=== PATIENT | female | born 1985 | race Caucasian/White ===

== ENCOUNTER → 2017-08-06 18:55 | Outpatient (CLI) | payer OTHER, SELFPAY ==
[2017-08-06 23:15] LABS: Chlamydia Trachomatis by PCR Negative (Negative); Neisserai gonorrhoeae by PCR Negative (Negative); Probe Check PASS; Sample Adequacy Control PASS; Specimen Processing Control PASS
[2017-08-14 13:31] LABS: HPV Reflexed? NOT INDICATED
== END | disposition home or self-care (01) ==
PROVIDERS: Family Provider Family Medicine; PCP Family Medicine; Visit Provider Obstetrics & Gynecology
DX: Z34.81 Encounter for supervision of other normal pregnancy, first trimester (principal); Z12.4 Encounter for screening for malignant neoplasm of cervix; Z11.3 Encounter for screening for infections with a predominantly sexual mode of transmission
CPT/HCPCS: 87491; 87591; 88175; G0145

== ENCOUNTER → 2017-10-25 16:04 | Outpatient (CLI) | payer OTHER, SELFPAY | PROVIDERS: Visit Provider Obstetrics & Gynecology | DX: R30.0 Dysuria (principal) | CPT/HCPCS: 87086; 87088 ==

== ENCOUNTER → 2017-10-29 14:15 | Outpatient (CLI) | payer OTHER, SELFPAY | PROVIDERS: Visit Provider Obstetrics & Gynecology | DX: R76.0 Raised antibody titer (principal) | CPT/HCPCS: 36415; 86850; 86870 ==

== ENCOUNTER → 2017-11-26 15:21 | Outpatient (CLI) | payer OTHER, SELFPAY | PROVIDERS: Visit Provider Obstetrics & Gynecology | DX: O36.1990 Maternal care for other isoimmunization, unspecified trimester, not applicable or unspecified (principal); Z3A.00 Weeks of gestation of pregnancy not specified | CPT/HCPCS: 36415 ==

== ENCOUNTER → 2017-12-24 13:06 | Outpatient (CLI) | payer OTHER, SELFPAY ==
[2017-12-24 14:08] LABS: Hematocrit 35.7 % (37-47); Hemoglobin 11.7 g/dl (12.0-15.0); Mean Corp Hgb Conc 32.8 g/gl (32-36); Mean Corpuscular Hgb 29.7 pg (27.0-32.0); Mean Corpuscular Volume 90.6 fL (81-99); Mean Platelet Vol. 11.7 fl (6.2-12.0); Platelet Count 165 K/mm3 (150-450); RBC Distribution Width SD 49.4 fl (35.1-43.9); Red Blood Count 3.94 M/mm3 (4.2-5.4); White Blood Count 11.7 K/mm3 (4.4-11.0)
[2017-12-24 14:09] LABS: Scan Indicated on CBC? Y/N NO
[2017-12-24 14:15] LABS: Glucose Challenge Gest 1H 50g 104 mg/dL (70-140)
== END ==
PROVIDERS: Visit Provider Obstetrics & Gynecology
DX: Z34.83 Encounter for supervision of other normal pregnancy, third trimester (principal)
CPT/HCPCS: 36415; 82950; 85027; 86850; 86870

== ENCOUNTER → 2018-01-21 15:24 | Outpatient (CLI) | payer OTHER, SELFPAY | PROVIDERS: Visit Provider Obstetrics & Gynecology | DX: Z01.83 Encounter for blood typing (principal) | CPT/HCPCS: 36415 ==

== ENCOUNTER → 2018-02-18 10:55 | Outpatient (CLI) | payer OTHER, SELFPAY ==
[2018-02-18 14:20] LABS: Group B Strep DNA By PCR Negative (Negative); Internal Control PASS; Probe Check PASS; Specimen Processing Control PASS
== END ==
PROVIDERS: Visit Provider Obstetrics & Gynecology
DX: Z36.85 Encounter for antenatal screening for Streptococcus B (principal)
CPT/HCPCS: 36415; 87081; 87653

== ENCOUNTER 2018-03-16 19:00 | Inpatient (IN) | payer OTHER, SELFPAY ==
[2018-03-16 19:08] VITALS: BMI 30.8
[2018-03-16] MEDS: Lactated Ringers 1,000 ML 50 ML IV ×2 (19:35→22:09)
[2018-03-16 20:09] LABS: Hematocrit 36.4 % (37-47); Mean Corpuscular Volume 87.9 fL (81-99); Mean Platelet Vol. 11.2 fl (6.2-12.0); Platelet Count 167 K/mm3 (150-450); RBC Distribution Width SD 48.1 fl (35.1-43.9); Red Blood Count 4.14 M/mm3 (4.2-5.4); White Blood Count 11.1 K/mm3 (4.4-11.0)
[2018-03-16] MEDS: Oxytocin 30 units/NS 500 ml 30 UNITS/500 ML IV.SOLN IV (20:15)
[2018-03-16 20:21] LABS: Scan Indicated on CBC? Y/N NO
[2018-03-16] MEDS: fentaNYL-bupivacaine (epidural) 100 ML BAG EPIDURAL (22:40)
[2018-03-17] VITALS: BP 132/77; PULSE 96; RESP 18; TEMP 36.7; O2SAT 99
[2018-03-17] MEDS: Lactated Ringers 1,000 ML 50 ML IV (01:30)
--- NOTE | 2018-03-17 03:53 | PCM.PN.BLA ---
Progress Note LABOR PROGRESS NOTE Comfortable, reportedly sleeping and epidural effective AVSS pitocin at 10 mIU/min EFM 130-140s avg variability accels. Category I tracing UCs coupling and spacing q 2-4 mins CX; with philippe cath placement at last check A/P: Induction of labor 39 5/7 wk. h/o 24 wk demise continue induction of labor. Anticipate .
[2018-03-17] MEDS: fentaNYL-bupivacaine (epidural) 100 ML BAG EPIDURAL (04:45)
[2018-03-17] MEDS: Oxytocin 30 units/NS 500 ml 30 UNITS/500 ML IV.SOLN 334 UNITS IV (06:30)
[2018-03-17] MEDS: Oxytocin 30 units/NS 500 ml 30 UNITS/500 ML IV.SOLN 167 UNITS IV (07:00)
[2018-03-17] MEDS: Methylergonovine 0.2 MG/ML Ampul IM (07:06)
--- NOTE | 2018-03-17 07:37 | PCM.OB.VAG ---
Vaginal Delivery Maternal Presentation: Elective Induction 39 4/7 wk EGA , h/o 24 wk loss Method of Induction: Pitocin, Amniotomy Amniotic Membrane Rupture Type: Artificial Amniotic Fluid Description: Clear Final ABEBE: 03/19/18 Gestational age: 39 Weeks and 5 Days Date of Procedure: 03/17/18 Pre-Operative Diagnosis: 39 4/7 wk induction Post-Operative Diagnosis: 39 5/7 wk deivery Surgery/ Procedure Performed: Spontaneous Vaginal Delivery Anesthesiologist: Fabienne Cope Type of Anesthesia: Epidural Description of Procedure: of a casas viable female over intact perineum to third degree laceration. Head delivered ROP Nuchal cord x one reduced. Shoulders delivered easily. to maternal abdomen and OP and nares bulb suctions. Cord clamped x two and cut. PP exam; 3rd degree laceration repaired under epidural to hemostatic, intact with 2-0 chromic interrupted suture, and 3-0 Vicryl . Placenta delivered by expulsion, expression 3v cord, normal appearing and intact with trailing membranes. EBL 350 Pt and infant tolerated delivery well. to recovery, stable condition. Ray Rosie counts correct x two. Presentation: Vertex, ROP Placental Delivery Description: Spontaneous, Expressed Placenta Disposition: [facility] Cord Vessel Description: 3 Vessels Cord Entanglement: Around neck x 1, loose Drain: Johnson to straight drain Estimated Blood Loss: 350 Infant A gender: Female (1 minute): 8 (5 minute): 9 Episiotomy Description: None Laceration: Perineal Extension/lac, Vaginal Extension/lac, 3rd degree Medications given after delivery: IV Pitocin Complications: None
--- NOTE | 2018-03-17 07:45 | DCINST_ITS ---
Discharge Diet: No Restrictions Discharge Activity: May Shower, May Take a Tub Bath Return to work on:: 04/28/18 May resume sexual activity in: 4-6 weeks Additional Activity Instructions:: Nothing in the vagina for 4-6 weeks. You may return to work/school in 6 weeks. Additional Instructions: If you experience any of the following, contact your healthcare provider. * Bleeding that soaks a pad every hour for 2 hours * Fever 100.4 or higher * Unrelieved abdominal pain * Problems urinating (including inability to urinate or burning while urinating) . * Visual changes * Severe headache * Flu-like symptoms * Pain or redness in one of both of your breasts * Pain, warmth, tenderness or swelling in your legs, especially the calf area * Frequent nausea and vomiting * Symptoms of depression or anxiety If you experience any of the following, call 911 or go to the nearest Emergency Room. * Chest pain * Problems breathing * Seizure activity * Partial or complete paralysis of a body part, slurred speech, weakness or drooping of the face, or a sudden inability to walk or hold your balance Allergies/Adverse Reactions: Allergies Penicillins Allergy (Verified 03/16/18 20:23) Rash Sulfa (Sulfonamide Antibiotics) Allergy (Verified 08/24/16 18:39) Hives diphenhydramine [From Benadryl] Adverse Reaction (Verified 08/24/16 18:39) Pain in joints Medications to take at Discharge Cetirizine HCl [Zyrtec] 10 mg PO DAILY 08/24/16 Triamcinolone Acetonide [Nasacort Aq Nasal [place]] 1 spray NASAL DAILY 08/24/16 Aspirin [Low Dose Aspirin EC] 81 mg PO DAILY 03/16/18 Vits [Prenatabs FA] 1 tablet PO DAILY 03/16/18 Please Follow Up With: Yaquelin Hayden MD - [phone] When: Call to make an appointment with your doctor in 6 weeks. Primary Care Physician: Sylvain Monk MD [Primary Care Provider] - Proposed Discharge Date: 03/19/18
[2018-03-17] MEDS: 0.9% Saline Lock 10 ML Syringe IV (08:00)
[2018-03-17] MEDS: Ibuprofen 600 MG Tablet PO ×2 (09:36→18:28)
[2018-03-17] MEDS: Acetaminophen 500 MG Tablet 1000 MG PO (11:40)
[2018-03-17] MEDS: Dibucaine 30 GM Tube 1 APPLIC TOPICAL (11:44)
[2018-03-17 12:15] VITALS: BP 134/63; PULSE 96; RESP 20; TEMP 36.6; O2SAT 98
[2018-03-17 16:20] VITALS: BP 121/77; PULSE 98; TEMP 36.9; O2SAT 98
[2018-03-17] MEDS: Psyllium 1 PACKET PO (16:21)
[2018-03-17 20:24] VITALS: BP 120/66; PULSE 80; RESP 18; TEMP 36.8; O2SAT 98
[2018-03-18 02:00] VITALS: BP 119/76; PULSE 80; RESP 18; TEMP 36.3; O2SAT 96
[2018-03-18] MEDS: Ibuprofen 600 MG Tablet PO ×3 (05:39→18:07)
[2018-03-18] MEDS: Senna/Docusate Sodium 1 Tablet PO (05:39)
[2018-03-18 07:55] VITALS: BP 119/61; PULSE 73; RESP 18; TEMP 36.4
--- NOTE | 2018-03-18 08:08 | PCM.PN.OB ---
Subjective: PPD#1 OP. 3rd deg laceration C/O soreness at perineum using all meds available for that. Bleeding minimal per RN. Bottle feeding. Doing well overall. - Physical Exam General: Alert, Oriented x3, Cooperative, No apparent distress HEENT: Atraumatic Neck: Supple Abdomen: Soft - Fundus firm NT at umbilicus Neurological: Cranial nerves II-XII grossly intact Psych/Mental Status: Normal Affect Vital Signs Temp Pulse Resp BP Pulse Ox 97.4 F L 80 18 119/76 96 03/18/18 02:00 03/18/18 02:00 03/18/18 02:00 03/18/18 02:00 03/18/18 02:00 Oxygen Delivery Method Room Air Weight: 78.925 kg Body Mass Index (BMI) 30.8 Intake and Output for Last 24 Hours 03/16/18 03/17/18 03/18/18 23:59 23:59 23:59 Intake Total 3994 / 3994 Output Total 2200 / 2200 800 / 800 Balance 1794 / 1794 -800 / -800 Laboratory Tests Past 24 Hrs 03/16/18 03/16/18 19:35 19:35 Antibody Screen POSITIVE H Antibody Identification ANTI-Fyb Cancelled Medical Necessity - Tobacco Use Smoking Status: Never smoker Assessment/Plan PPD#1 OP with 3rd degree laceration Stable pp. Continue care. Advised potential dischg home later today if baby is released.
[2018-03-18 13:52] VITALS: BP 126/75; PULSE 80; RESP 16; TEMP 36.2
[2018-03-18 19:46] VITALS: BP 124/70; PULSE 92; RESP 16; TEMP 36.7; O2SAT 99
[2018-03-19] MEDS: Ibuprofen 600 MG Tablet PO ×2 (00:10→06:18)
[2018-03-19 02:05] VITALS: BP 112/68; PULSE 67; RESP 18; TEMP 36.4; O2SAT 98
--- NOTE | 2018-03-19 07:22 | PCM.PN.OB ---
Subjective: PPD#2 Doing well. Bottle feeding. 3rd degree laceration so more painful at perineum. (OP). Pain control adequate with the ibuprofen (600 mg tab) requesting RX also for this and for senekot. - Physical Exam General: Alert, Oriented x3, Cooperative, No apparent distress HEENT: Atraumatic Neck: Supple Abdomen: Soft - Fundus firm NT, inferior to umbilicus Neurological: Cranial nerves II-XII grossly intact Psych/Mental Status: Normal Affect Vital Signs Temp Pulse Resp BP Pulse Ox 97.6 F L 67 18 112/68 98 03/19/18 02:05 03/19/18 02:05 03/19/18 02:05 03/19/18 02:05 03/19/18 02:05 Oxygen Delivery Method Room Air Weight: 78.925 kg Body Mass Index (BMI) 30.8 Intake and Output for Last 24 Hours 03/17/18 03/18/18 03/19/18 23:59 23:59 23:59 Output Total 800 / 800 Balance -800 / -800 Medical Necessity - Tobacco Use Smoking Status: Never smoker Assessment/Plan PPD#2 OP with 3rd degree laceration Stable pp. Dischg home today
--- NOTE | 2018-03-19 07:24 | PCM.DC.SUM ---
Discharge Date and Diagnosis Date of Admission: 03/16/18 - 39+ wk elective induction Date of Discharge: 03/19/18 - s/p Hospital Course and Treatment Operations: - - induction of labor, Summary of Care Provided: The patient is a 32 year old female at 39 + wk presents late in evening for elective induction of labor due to h/o 24 wk loss. AROM, pitocin. Epidural placed. Progressed to complete. Delivered casas viable female over 3rd deg laceration. OP position. course uneventful except for inc pain at perineum d/t OP delivery Home on PPD#2 RTO in 6 wk for pp check. Discharge Diet: No Restrictions Discharge Activity: May Shower, May Take a Tub Bath Return to work on:: 04/28/18 May resume sexual activity in: 4-6 weeks Additional Activity Instructions:: Nothing in the vagina for 4-6 weeks. You may return to work/school in 6 weeks. Home Medications: Medications to take at Discharge Cetirizine HCl [Zyrtec] 10 mg PO DAILY 08/24/16 Triamcinolone Acetonide [Nasacort Aq Nasal [place]] 1 spray NASAL DAILY 08/24/16 Aspirin [Low Dose Aspirin EC] 81 mg PO DAILY 03/16/18 Vits [Prenatabs FA] 1 tablet PO DAILY 03/16/18 Primary Care Physician: Sylvain Monk MD [Primary Care Provider] - Please Follow Up With: Yaquelin Hayden MD - [phone] Medical Necessity - Tobacco Use Smoking Status: Never smoker Meaningful Use Info Meaningful Use Diagnoses (Choose all that apply): None applicable
[2018-03-19] MEDS: Senna/Docusate Sodium 1 Tablet PO (08:44)
[2018-03-19 09:00] VITALS: BP 126/58; PULSE 76; RESP 16; TEMP 36.2; O2SAT 99
== END 2018-03-19 13:00 | disposition home or self-care (01) | DRG 775 ==
PROVIDERS: Admitting Provider Obstetrics & Gynecology; Family Provider Family Medicine; PCP Family Medicine; Visit Provider Obstetrics & Gynecology
DX: O75.89 Other specified complications of labor and delivery (principal); O70.20 Third degree perineal laceration during delivery, unspecified; O69.81X0 Labor and delivery complicated by cord around neck, without compression, not applicable or unspecified; Z37.0 Single live birth; Z3A.39 39 weeks gestation of pregnancy
CPT/HCPCS: 59025; 59050; 85027; 86850; 86870; 86900; 86902; 86920; 86922; 99218; J7120; A4216; G0378

== ENCOUNTER 2018-08-01 13:18 | Emergency (ER) | payer OTHER, SELFPAY ==
[2018-08-01 13:21] VITALS: BP 163/88; PULSE 127; RESP 17; TEMP 36.8; O2SAT 98; BMI 26.1
--- NOTE | 2018-08-01 13:37 | ED.RN ---
PT COMPLAINS OF WEAKNESS OF BILAT UPPER AND LOWER EXTREMITIES THAT BEGAN APPROX 24 HRS AFTER VACCINE.
--- NOTE | 2018-08-01 13:47 | CT_ITS ---
STUDY: CT BRAIN WITHOUT CONTRAST REASON FOR EXAM: Female, 33 years old. Left-sided weakness. History of recent flu shot. RADIATION DOSAGE (If Supplied By Facility): CTDIvol = ( 60.81 ) mGy, DLP = ( 1290.36 ) mGycm TECHNIQUE: Transaxial CT imaging of the brain was performed without administration of intravenous contrast material. Individualized dose optimization techniques were used for this CT. COMPARISON: None. FINDINGS: Normal soft tissue structures. Normal calvarium. Normal size ventricles and extra-axial spaces for the patient's age. Normal white matter tracts of the cerebral hemispheres. Normal basal ganglia and thalami. Normal brainstem. Normal cerebellum. There is no intracranial hemorrhage. There are no findings of an acute ischemic infarction. Normal visualized paranasal sinuses. CT/Brain/Head without Contrast IMPRESSION: Normal unenhanced CT scan of the brain. Electronically Signed: Matthieu Marcos MD at 14:41 EDT Tel [phone], Service support ,
--- NOTE | 2018-08-01 14:42 | ED.VISSUMM ---
- ER Visit Summary Date of Service: 08/01/18 Chief Complaint: Bad reaction to flu shot History of Present Illness: The patient is a [address] Monk. She reports that 3 days ago she got a influenza vaccine in her left deltoid. She reports that night the area became swollen and red. States that 2 days ago she has paresthesias that began in the medial side of her left forearm and small finger and the medial side of her left leg and foot. She reports that today her right forearm is now involved and she has an area of numbness just below her right shoulder blade. She also reports that she has weakness in her left arm and leg that began yesterday. Patient states that she went to occupational health and they sent her to the [facility] emergency department 2 days ago when she was placed on prednisone. Review of systems: General: No fever, chills, cold sweats. Cardiovascular: No chest pain, palpitations. Respiratory: No cough, shortness of breath, dyspnea on exertion. Gastrointestinal: No abdominal pain, nausea, vomiting, diarrhea, melena, or hematochezia. Genitourinary: No dysuria, frequency, hematuria. Skin: No rash. Physical Examination: Vitals: Stable. Afebrile. General: Well-nourished and well-developed. Head: Normocephalic atraumatic. Neck: Supple, no lymphadenopathy. No JVD. Nontender. Cardiovascular: Regular rate and rhythm. No murmurs. Respiratory: No respiratory distress. Clear to auscultation bilaterally. Abdominal: Soft, nontender, nondistended, normal bowel sounds. No guarding, rebound, or peritoneal signs. Back: Nontender. Extremities: Nontender, no edema. Skin: Normal color, no rash. Neurologic: Alert and oriented ?3. Cranial nerves II through XII are intact. Decreased sensation to light touch in her left hand and left leg. Normal sensation elsewhere. She has a 1 out of 5 mixing supervisor on the left and normal on the right. Normal biceps and triceps strength bilaterally. 4 out of 5 strength left leg and 5 out of 5 strength right leg. Psych: Depressed and tearful at times. Test Results: CT head is normal. CBC is more for hemoglobin of 15.4 monocytes of 11. Chem-7 is more for chloride 109 test is negative. Emergency Department Course and Treatment: Patient reports that she does have an uncle who had multiple sclerosis. However, she is worried about the possibility of Guyon Mehta? syndrome following her influenza shot. I had a prolonged discussion with her that this is not the way that Cara Mehta? presents and discussed this with Dr. Wolf on the phone as well. During this conversation it came to light that 2 years ago when the patient had an influenza shot she was . She ended up having a miscarriage at 6 months and the anniversary of that is in 3 weeks. I had a prolonged discussion with her about the likelihood that she is having a difficult time dealing with this and having physical symptoms as a result of this. She does agree that this may be a possibility. I did point out to the patient that she was unable to mixing supervisor my hand at all, but she is able to hold up her phone and text with her left hand with no difficulty. She has chosen not to have a lumbar puncture or an MRI. Patient reports that she is scheduled for nerve conduction studies and EMG through occupational health. I did discuss that I think that is a reasonable course of action for reassurance more than anything and that if her symptoms have resolved prior to that that I would cancel this. Treatment Plan: Patient will be discharged prescription for Paxil. Instructed to follow-up with Dr. Wolf in 10-14 days if not improving. Return to the emergency department for any worsening symptoms. Disposition: To home in improved and stable condition. Impression: 1. 3 days status post influenza vaccination. 2. Paresthesias. This note was generated with [employer] dictation software. It may contain incorrect words, spelling, and punctuation that were not noted in review of the chart prior to signing ED Disposition - Plan for ED Patient: Disposition: Acute Care Hospital [facility] Chief Complaint: Allergic Reaction Instructions: ED Paraesthesias Prescriptions: Paroxetine HCl [Paxil] 20 mg PO DAILY #30 tablet Referrals: Sylvain Monk MD [Primary Care Provider] - Pastor Wolf MD [STAFF PHYSICIAN] - 10-14 Days if not better
[2018-08-01 14:43] LABS: Absolute Lymphocyte Count 2.69 X10^3/ul (0.83-4.51); Absolute Neutrophil Count 6.8 X10^3/uL (2.0-7.7); Basophil# 0.02 X10^3/uL; Basophil% 0.2 % (0-1); Eosinophil# 0.01 X10^3/uL; Eosinophils% 0.1 % (0-5); Hematocrit 46.4 % (37-47); Hemoglobin 15.4 g/dl (12.0-15.0); Lymphocyte # 2.69 X10^3/ul (4.0); Lymphocyte % 24.9 % (19-41); Mean Corp Hgb Conc 33.2 g/gl (32-36); Mean Corpuscular Hgb 28.7 pg (27.0-32.0); Mean Corpuscular Volume 86.6 fL (81-99); Monocyte# 1.22 X10^3/uL; Monocyte% 11.3 % (0-10); Neutrophil # 6.83 X10^3/uL (2.7-7.7); Neutrophil % 63.3 % (47-70); POSITIVE COUNT NO; POSITIVE DIFFERENTIAL NO; POSITIVE MORPHOLOGY NO; Platelet Count 238 K/mm3 (150-450); RBC Distribution Width CV 14.9 % (11.6-14.6); RBC Distribution Width SD 47.3 fl (35.1-43.9); Red Blood Count 5.36 M/mm3 (4.2-5.4); White Blood Count 10.8 K/mm3 (4.4-11.0)
--- NOTE | 2018-08-01 14:49 | ED.DCSUM_ITS ---
- ER Visit Summary Date of Service: 08/01/18 Chief Complaint: Bad reaction to flu shot History of Present Illness: The patient is a [address] Monk. She reports that 3 days ago she got a influenza vaccine in her left deltoid. She reports that night the area became swollen and red. States that 2 days ago she has paresthesias that began in the medial side of her left forearm and small finger and the medial side of her left leg and foot. She reports that today her right forearm is now involved and she has an area of numbness just below her right shoulder blade. She also reports that she has weakness in her left arm and leg that began yesterday. Patient states that she went to occupational health and they sent her to the [facility] emergency department 2 days ago when she was placed on prednisone. Review of systems: General: No fever, chills, cold sweats. Cardiovascular: No chest pain, palpitations. Respiratory: No cough, shortness of breath, dyspnea on exertion. Gastrointestinal: No abdominal pain, nausea, vomiting, diarrhea, melena, or hematochezia. Genitourinary: No dysuria, frequency, hematuria. Skin: No rash. Physical Examination: Vitals: Stable. Afebrile. General: Well-nourished and well-developed. Head: Normocephalic atraumatic. Neck: Supple, no lymphadenopathy. No JVD. Nontender. Cardiovascular: Regular rate and rhythm. No murmurs. Respiratory: No respiratory distress. Clear to auscultation bilaterally. Abdominal: Soft, nontender, nondistended, normal bowel sounds. No guarding, rebound, or peritoneal signs. Back: Nontender. Extremities: Nontender, no edema. Skin: Normal color, no rash. Neurologic: Alert and oriented ?3. Cranial nerves II through XII are intact. Decreased sensation to light touch in her left hand and left leg. Normal sensation elsewhere. She has a 1 out of 5 paper latcher on the left and normal on the right. Normal biceps and triceps strength bilaterally. 4 out of 5 strength left leg and 5 out of 5 strength right leg. Psych: Depressed and tearful at times. Test Results: CT head is normal. CBC is more for hemoglobin of 15.4 monocytes of 11. Chem-7 is more for chloride 109 test is negative. Emergency Department Course and Treatment: Patient reports that she does have an uncle who had multiple sclerosis. However, she is worried about the possibility of Guyon Mehta? syndrome following her influenza shot. I had a prolonged discuss ion with her that this is not the way that Cara Mehta? presents and discussed this with Dr. Wolf on the phone as well. During this conversation it came to light that 2 years ago when the patient had an influenza shot she was . She ended up having a miscarriage at 6 months and the anniversary of that is in 3 weeks. I had a prolonged discussion with her about the likelihood that she is having a difficult time dealing with this and having physical symptoms as a result of this. She does agree that this may be a possibility. I did point out to the patient that she was unable to paper latcher my hand at all, but she is able to hold up her phone and text with her left hand with no difficulty. She has chosen not to have a lumbar puncture or an MRI. Patient reports that she is scheduled for nerve conduction studies and EMG through occupational health. I did discuss that I think that is a reasonable course of action for reassurance more than anything and that if her symptoms have resolved prior to that that I would cancel this. Treatment Plan: Patient will be discharged prescription for Paxil. Instructed to follow-up with Dr. Wolf in 10-14 days if not improving. Return to the emergency department for any worsening symptoms. Disposition: To home in improved and stable condition. Impression: 1. 3 days status post influenza vaccination. 2. Paresthesias. This note was generated with [employer] dictation software. It may contain incorrect words, spelling, and punctuation that were not noted in review of the chart prior to signing ED Disposition - Plan for ED Patient: Disposition: Acute Care Hospital [facility] Chief Complaint: Allergic Reaction Instructions: ED Paraesthesias Prescriptions: Paroxetine HCl [Paxil] 20 mg PO DAILY #30 tablet Referrals: Sylvain Monk MD [Primary Care Provider] - Pastor Wolf MD [STAFF PHYSICIAN] - 10-14 Days if not better
[2018-08-01 15:01] LABS: Anion Gap 8 (5-15); BUN 16 mg/dL (7-18); BUN/Creat Ratio 20.8 RATIO (10-20); Calcium,Total 9.3 mg/dL (8.5-10.1); Chloride 109 mmol/L (98-107); Creatinine, Serum 0.77 mg/dL (0.55-1.02); EST Glomerular Filtration Rate 91 mL/min (>60); Est Glom Filt Rate - Afr Amer 110 mL/min (>60); Estimated Creatinine Clearance 84.36 ml/min; Glucose 83 mg/dL (74-106); Sodium Level 141 mmol/L (136-145)
[2018-08-01 15:10] LABS: Pregnancy, Serum, hCG Quali. NEGATIVE Negative (0-9 Nonpreg)
[2018-08-01 15:54] VITALS: BP 144/88; PULSE 94; RESP 17; O2SAT 100
--- NOTE | 2018-08-01 15:55 | ED.RN ---
IV DC'ED, CATHETER INTACT, SMALL GAUZE DRESSING PLACED. DISCHARGE INSTRUCTIONS GIVEN TO AND REVIEWED WITH PATIENT, PATIENT DENIES QUESTIONS OR CONCERNS AND VOICES UNDERSTANDING OF DISCHARGE INSTRUCTIONS. PT AMBULATES OUT OF ROOM WITHOUT ISSUE.
== END 2018-08-01 15:56 | disposition short-term general hospital (02) ==
PROVIDERS: Emergency Provider Emergency Medicine; Family Provider Family Medicine; PCP Family Medicine
DX: R20.2 Paresthesia of skin (principal); R51 Headache; R53.1 Weakness
CPT/HCPCS: 70450; 80048; 84703; 85025; 99285; A4216

== ENCOUNTER → 2019-05-19 08:53 | Outpatient (CLI) | payer BC, OTHER, SELFPAY ==
--- NOTE | 2019-05-19 09:01 | US_ITS ---
STUDY: THYROID ULTRASOUND REASON FOR EXAM: Female, 33 years old. Iodine deficiency. TECHNIQUE: Ultrasound evaluation of the thyroid was performed with real-time and static billings-scale imaging. COMPARISON: None. FINDINGS: RIGHT LOBE: The right lobe of the thyroid gland measures 5.6 x 1.4 x 1.5 cm. There is a homogeneous echotexture. There are no demonstrated solid, cystic or complex lesions. LEFT LOBE: The left lobe of the thyroid gland measures 5.1 x 1.2 x 1.2 cm. There is a homogeneous echotexture. There are no demonstrated solid, cystic or complex lesions. ISTHMUS: The isthmus measures 2.0 mm. There is a 1.7 x 2.7 x 1.3 mm well-circumscribed anechoic focus within the isthmus right of midline consistent with an underlying colloid cyst The regional lymph nodes are normal. US/Thyroid IMPRESSION: Enlarged thyroid gland. 1.7 x 2.7 x 1.3 mm colloid cyst within the isthmus. Electronically Signed: Dominique Eddy MD at 16:53 EDT Tel , Service support ,
[2019-05-19 11:01] LABS: Free T3 2.9 pg/mL (2.18-3.98); Thyroid Stim Hormone (TSH) 0.69 uIU/mL (0.358-3.74)
== END ==
PROVIDERS: Family Provider Family Medicine; PCP Family Medicine; Referring Provider Family Medicine; Visit Provider Family Medicine
DX: E01.0 Iodine-deficiency related diffuse (endemic) goiter (principal); Z13.29 Encounter for screening for other suspected endocrine disorder
CPT/HCPCS: 36415; 76536; 84439; 84443; 84481

== ENCOUNTER → 2019-09-03 09:41 | Outpatient (CLI) | payer BC, OTHER, SELFPAY ==
[2019-09-07 12:07] LABS: Age Gdln ACOG Testing 30-65 (.)
[2019-09-07 16:22] LABS: HPV APTIMA, High Risk Negative (Negative); HPV Reflexed? YES, CHARGE PATIENT
== END ==
PROVIDERS: Family Provider Family Medicine; PCP Family Medicine; Visit Provider Obstetrics & Gynecology
DX: E55.9 Vitamin D deficiency, unspecified (principal); Z12.4 Encounter for screening for malignant neoplasm of cervix
CPT/HCPCS: 36415; 82306; 87624; 88175; G0145

== ENCOUNTER → 2020-12-15 10:45 | Outpatient (CLI) | payer BC, OTHER, SELFPAY ==
[2020-12-15 13:28] LABS: Vitamin D,25 Hydroxy 17.1 ng/mL
[2020-12-20 20:32] LABS: HPV Reflexed? NOT INDICATED
== END ==
PROVIDERS: PCP Family Medicine; Visit Provider Obstetrics & Gynecology
DX: E55.9 Vitamin D deficiency, unspecified (principal); Z12.4 Encounter for screening for malignant neoplasm of cervix
CPT/HCPCS: 36415; 82306; 88175; G0145

== ENCOUNTER → 2022-01-18 | Outpatient (CLI) | payer BC, OTHER, SELFPAY ==
[2022-01-25 14:06] LABS: HPV Reflexed? NOT INDICATED
== END | disposition home or self-care (01) ==
LOC: LABSPEC 15:16
PROVIDERS: PCP Family Medicine; Visit Provider Obstetrics & Gynecology
DX: Z12.4 Encounter for screening for malignant neoplasm of cervix (principal)
CPT/HCPCS: 88175; G0145

== ENCOUNTER → 2022-02-08 | Outpatient (CLI) | payer BC, OTHER, SELFPAY ==
--- NOTE | 2022-02-08 07:37 | BI_ITS ---
MAMMOGRAPHY - BILATERAL SCREENING REASON FOR EXAM: Female, 36 years old. Routine annual screening examination. PERTINENT HISTORY: Non-contributory. TECHNIQUE: Digital bilateral breast elfego (3D mammographic acquisition) in the CC and MLO projections. 2-D mediolateral oblique (MLO) and craniocaudad (CC) views of both breasts were obtained. CAD: Full Field Digital Mammography with Computer Added Detection was performed. COMPARISON: None. Baseline examination. FINDINGS: Breast Composition: There are scattered areas of fibroglandular density. There are no dominant masses or suspicious calcifications. Small benign-appearing bilateral axillary lymph nodes. No other significant abnormalities are identified. BI/SCRN MAMM (CAD)W/ELFEGO BILAT IMPRESSION: Negative screening mammogram. Yearly followup mammogram recommended. (A) ASSESSMENT CATEGORY: Approximately 10% of breast cancers are not detected by mammography. A normal mammogram should not delay biopsy of a clinically suspicious abnormality. [id number] Electronically Signed: Matthieu Marcos MD at 8:49 EDT ,
== END | disposition home or self-care (01) ==
LOC: OPBI 07:34
PROVIDERS: PCP Family Medicine; Visit Provider Obstetrics & Gynecology
DX: Z12.31 Encounter for screening mammogram for malignant neoplasm of breast (principal)
CPT/HCPCS: 77063; 77067

== ENCOUNTER → 2022-09-07 | Outpatient (CLI) | payer BC, OTHER, SELFPAY ==
[2022-09-07 14:33] LABS: Absolute Lymphocyte Count 2.04 X10^3/uL (0.83-4.51); Absolute Neutrophil Count 8.8 X10^3/uL (2.0-7.7); Basophil# 0.04 X10^3/uL; Basophil% 0.3 % (0-1); Eosinophil# 0.01 X10^3/uL; Eosinophils% 0.1 % (0-5); Hematocrit 42.1 % (37-47); Hemoglobin 13.5 g/dL (12.0-15.0); Lymphocyte # 2.04 X10^3/ul (0.83-4.51); Lymphocyte % 17.8 % (19-41); Mean Corp Hgb Conc 32.1 g/dL (32-36); Mean Corpuscular Volume 90.3 fL (81-99); Mean Platelet Vol. 10.8 fl (6.2-12.0); Monocyte# 0.58 X10^3/uL; Monocyte% 5.1 % (0-10); NRBC Flagged by Analyzer 0 % (0-5); Neutrophil # 8.77 X10^3/uL (2.7-7.7); Neutrophil % 76.4 % (47-70); Platelet Count 277 K/mm3 (150-450); RBC Distribution Width CV 13.6 % (11.6-14.6); RBC Distribution Width SD 45.4 fl (35.1-43.9); Red Blood Count 4.66 M/mm3 (4.2-5.4); White Blood Count 11.5 K/mm3 (4.4-11.0)
--- NOTE | 2022-09-07 14:54 | MRI_ITS ---
STUDY: MRI BRAIN WITH AND WITHOUT CONTRAST REASON FOR EXAM: Female, 37 years old. NERVE PALSY L EYE, right lower lip paresthesia, dull headache, history of migraines TECHNIQUE: Standardized multiplanar fat and water weighted pulse sequences were obtained. 14 CC IV CLARISCAN was administered for the contrast portion of the examination. COMPARISON: None. FINDINGS: Normal size of the ventricles and extra-axial spaces for the patient''s age. Normal white matter tracts of the supratentorial brain. There is no evidence for recent intracranial ischemia or other cause of cytotoxic edema on diffusion weighted imaging (DWI). Normal T2* images of the brain without demonstrated susceptibility artifact. There is no demonstrated hemosiderin stain. There are no demyelinating plagues of the supratentorial brain, brainstem or cerebellum. There are no findings suspicious for multiple sclerosis (MS). Normal bilateral basal ganglia. Normal thalami. There is no extra-axial fluid accumulation. Normal flow voids within the major intracranial circulation suggesting patency by spin echo criteria. Normal venous enhancement. There is no enhancing intra-axial or extra-axial abnormality. Normal sella turcica, pituitary gland, infundibular stalk, optic chiasm and hypothalamus. Normal tectal plate and pineal gland. Normal midbrain, lisa and medulla. Normal cerebellum. Normal basal cisterns. Normal bilateral temporal bones. Normal bilateral internal auditory canals. No demonstrated orbital abnormality, within the constraints of a routine brain study. Normal visualized paranasal sinuses. Normal calvarium and skull base. Normal visualized soft tissue structures. Normal visualized upper cervical spine. MRI/Brain W/WO Contrast IMPRESSION: Normal unenhanced and enhanced MRI of the brain. Electronically Signed: Luis Alberto Doan MD at 17:10 EST ,
[2022-09-12 22:11] LABS: ACHR Recep AB, Blocking 14 % (0-25)
[2022-09-12 22:12] LABS: ACHR AB Modulating 6 % (0-45)
== END | disposition home or self-care (01) ==
PROVIDERS: PCP Family Medicine; Visit Provider Ophthalmology
DX: H49.22 Sixth [abducent] nerve palsy, left eye (principal)
CPT/HCPCS: 36415; 70553; 83519; 85025; A9575

== ENCOUNTER → 2023-01-03 | Outpatient (CLI) | payer BC, OTHER, SELFPAY ==
[2023-01-03 10:00] LABS: Erythrocyte Sedimentation Rate 8 mm/hr (0-30)
[2023-01-03 10:02] LABS: Hemoglobin 14.2 g/dL (12.0-15.0); Mean Corp Hgb Conc 32.3 g/dL (32-36); Mean Corpuscular Hgb 28.9 pg (27.0-32.0); Mean Corpuscular Volume 89.6 fL (81-99); Mean Platelet Vol. 11.2 fl (6.2-12.0); Platelet Count 277 K/mm3 (150-450); RBC Distribution Width CV 14.4 % (11.6-14.6); RBC Distribution Width SD 47.7 fl (35.1-43.9); Red Blood Count 4.91 M/mm3 (4.2-5.4); White Blood Count 7.4 K/mm3 (4.4-11.0)
[2023-01-03 10:17] LABS: Vitamin B12 292 pg/mL (211-911); Vitamin D,25 Hydroxy 20.2 ng/mL
[2023-01-03 10:19] LABS: D-Dimer Quantitative (DVT/PE) 0.41 FEU/ug/m (0.27-0.49)
[2023-01-03 10:26] LABS: ALB/GLOB Ratio 1.1 RATIO (0.9-2.4); AST(SGOT) 14 U/L (15-37); Alanine Aminotransfer ALT/SGPT 20 U/L (13-56); Albumin, Serum 3.9 g/dL (3.2-5.0); Alkaline Phosphatase 72 U/L (45-117); Anion Gap 7 (5-15); BUN 9 mg/dL (7-18); BUN/Creat Ratio 12.6 RATIO (10-20); CRP 6.46 mg/L (0.0-3.0); Calcium,Total 9.3 mg/dL (8.5-10.1); Chloride 105 mmol/L (98-107); Cholesterol 177 mg/dL (200); Creatinine, Serum 0.72 mg/dL (0.55-1.02); EST Glomerular Filtration Rate 96 mL/min (>60); Est Glom Filt Rate - Afr Amer 116 mL/min (>60); Ferritin 23 ng/mL (8-252); Free T3 2.9 pg/mL (2.18-3.98); Globulin 3.5 g/dL (2.2-4.2); Glucose 107 mg/dL (74-106); High Density Lipoprotein 63 mg/dL; Magnesium 2.1 mg/dL (1.6-2.6); Potassium 3.6 mmol/L (3.5-5.1); Protein, Total 7.4 g/dL (6.4-8.2); Rheumatoid Factor < 10.0 IU/mL (<15); Sodium Level 137 mmol/L (136-145); T4 Free Direct 1.08 ng/dL (0.76-1.46); Thyroid Stim Hormone (TSH) 0.96 uIU/mL (0.358-3.74); Triglycerides 97 mg/dL; Very Low Density Lipoprotein 19 mg/dL (5-40)
[2023-01-03 10:34] LABS: International Normalized Ratio 1.1; Prothrombin Time (Protime)PT. 13.8 SECONDS (11.7-14.9)
[2023-01-03 10:35] LABS: Partial Thromboplast Time 28.3 Seconds (24.1-36.2)
[2023-01-04 15:28] LABS: ANTINUCLEAR ANTIBODIES DIRECT Negative (Negative)
[2023-01-08 09:08] LABS: Dilute Prothrombin Time (dPT) 38.1 sec (0.0-47.6); Dilute Russell Viper Venom 41.6 sec (0.0-47.0); PTT-LA 36.2 sec (0.0-43.5); Protein C Antigen 109 % (60-150); Protein C, Functional 138 % (73-180); Protein S, Free 95 % (61-136); Testosterone, % Free 0.68 % (0.50-2.80); Testosterone, Total 14 ng/dL (8-60); Thrombin Time 17.6 sec (0.0-23.0); Thyroid Peroxidase AB < 9 IU/mL (0-34); dPT Confirm Ratio 1.15 Ratio (0.00-1.34)
[2023-01-08 14:37] LABS: Antithrombin 3 Function 125 % (75-135); Factor VIII Activity 126 % (56-140); Interpretation Comment: (.); Protein S, Funtional 43 % (63-140); Protein S, Total 95 % (60-150); Thyroglobulin Antibody < 1.0 IU/mL (0.0-0.9)
== END | disposition home or self-care (01) ==
LOC: LAB.FUTURE 09:04 → LAB 09:07
PROVIDERS: PCP Family Medicine; Referring Provider Family Medicine; Visit Provider Family Medicine
DX: G43.909 Migraine, unspecified, not intractable, without status migrainosus (principal); R53.83 Other fatigue; L65.9 Nonscarring hair loss, unspecified; H49.20 Sixth [abducent] nerve palsy, unspecified eye; H35.81 Retinal edema
CPT/HCPCS: 36415; 80053; 80061; 81241; 82306; 82533; 82607; 82728; 83090; 83735; 84402; 84403; 84439; 84443; 84481; 85027; 85240; 85300; 85302; 85303; 85305; 85306; 85379; 85610; 85652; 85730; 86038; 86140; 86376; 86431; 86800

== ENCOUNTER → 2023-04-04 | Outpatient (CLI) | payer BC, OTHER, SELFPAY ==
[2023-04-04 18:26] LABS: Thyroid Stim Hormone (TSH) 0.74 uIU/mL (0.358-3.74)
== END | disposition home or self-care (01) ==
LOC: MTLAB 14:43
PROVIDERS: PCP Family Medicine; Referring Provider Internal Medicine Endocrinology, Diabetes & Metabolism; Visit Provider Internal Medicine Endocrinology, Diabetes & Metabolism
DX: E04.2 Nontoxic multinodular goiter (principal)
CPT/HCPCS: 36415; 84443

== ENCOUNTER → 2023-04-25 | Outpatient (CLI) | payer BC, OTHER, SELFPAY ==
[2023-04-25 14:16] LABS: Insulin 7.6 mU/L (2.6-37.6); Vitamin D,25 Hydroxy 21.2 ng/mL
[2023-05-01 12:08] LABS: Testosterone, Free 0.29 ng/dL (0.10-0.85); Testosterone, Total 22 ng/dL (8-60)
== END | disposition home or self-care (01) ==
LOC: LAB 12:50
PROVIDERS: PCP Family Medicine; Referring Provider Internal Medicine Endocrinology, Diabetes & Metabolism; Visit Provider Internal Medicine Endocrinology, Diabetes & Metabolism
DX: L65.9 Nonscarring hair loss, unspecified (principal); E55.9 Vitamin D deficiency, unspecified; E88.81 Metabolic syndrome and other insulin resistance; E04.2 Nontoxic multinodular goiter; L70.9 Acne, unspecified
CPT/HCPCS: 36415; 82306; 82533; 83525; 84402; 84403

== ENCOUNTER → 2023-08-15 | Outpatient (CLI) | payer BC, OTHER, SELFPAY ==
[2023-08-15 15:10] LABS: ALB/GLOB Ratio 1.1 RATIO (0.9-2.4); AST(SGOT) 14 U/L (15-37); Alanine Aminotransfer ALT/SGPT 17 U/L (13-56); Albumin, Serum 3.9 g/dL (3.2-5.0); Alkaline Phosphatase 72 U/L (45-117); Anion Gap 6 (5-15); BUN 12 mg/dL (7-18); BUN/Creat Ratio 18.9 RATIO (10-20); Chloride 108 mmol/L (98-107); Creatinine, Serum 0.64 mg/dL (0.55-1.02); EST Glomerular Filtration Rate 110 mL/min (>60); Est Glom Filt Rate - Afr Amer 133 mL/min (>60); Globulin 3.7 g/dL (2.2-4.2); Glucose 97 mg/dL (74-106); Potassium 4.4 mmol/L (3.5-5.1); Protein, Total 7.6 g/dL (6.4-8.2); Sodium Level 141 mmol/L (136-145)
== END | disposition home or self-care (01) ==
LOC: MTLAB 13:24
PROVIDERS: PCP Family Medicine
DX: L70.0 Acne vulgaris (principal); D22.62 Melanocytic nevi of left upper limb, including shoulder; L57.8 Other skin changes due to chronic exposure to nonionizing radiation; W89.1XXA Exposure to tanning bed, initial encounter
CPT/HCPCS: 36415; 80053

== ENCOUNTER → 2023-12-03 | Outpatient (CLI) | payer BC, OTHER, SELFPAY ==
--- NOTE | 2023-12-03 09:22 | US_ITS ---
INDICATION: right breast -- feels different'', right upper outer quadrant EXAMINATION: Ultrasound RIGHT US Breast Unilateral Limited TECHNIQUE: Targeted billings scale and color-doppler imaging was performed of the right upper outer breast. COMPARISON: None. FINDINGS: Heterogeneous background echotexture. No focal fluid collection or cystic or solid mass is appreciated. No sonographic architectural distortion or suspicious shadowing. No ductal ectasia. US/Breast Limited Unilateral IMPRESSION: Negative breast ultrasound. ASSESSMENT CATEGORY: BIRADS Category 0: Incomplete: Need Additional Imaging Evaluation and/or Prior Mammograms for Comparison. FOLLOW UP RECOMMENDATION: Bilateral diagnostic breast mammogram is recommended to evaluation. Second look ultrasound may be obtained as clinically indicated. NOTES: 7-10% of cancers are not identified by mammography. Any palpable finding should be evaluated independently of this report. Guidelines for Early Breast Cancer Detection: * Annual breast examination by a physician or other health care provider. * Monthly breast self-examination. * Annual mammography screening beginning at age 40 and continuing for as long as a woman is in good health. * Women at increased risk (e.g., family history, genetic tendency, past breast cancer) should talk with their doctors about the benefits and limitations of starting mammography screening earlier, having additional tests (e.g., breast ultrasound or MRI) or having more frequent exams. Screening MRI is recommended for women with an approximately 20-25% or greater lifetime risk of breast cancer, including women with a strong family history of breast or ovarian cancer and women who were treated for Hodgkin''''s disease. Electronically Signed: Rosalino Devlin MD at 23:23 EST Reading Location ID and State: [facility] / [place] Tel , Service support ,
--- NOTE | 2023-12-03 09:22 | BI_ITS ---
MAMMOGRAPHY - BILATERAL DIAGNOSTIC REASON FOR EXAM: Female, 38 years old. right breast mass PERTINENT HISTORY: Non-contributory. TECHNIQUE: Digital examination. Mediolateral oblique (MLO) and craniocaudad (CC) views of both breasts were obtained. CAD: CAD was performed on this study. COMPARISON: 02/08/2022 FINDINGS: Breast Composition: There are scattered areas of fibroglandular density. There are no dominant masses or suspicious calcifications. No other significant abnormalities are identified. BI/DIAG MAMM W/CAD, BILAT IMPRESSION: Stable bilateral diagnostic mammogram. Ultrasound of the palpable abnormality in the upper outer quadrant of the right breast will be obtained. ASSESSMENT CATEGORY: BIRADS Category 0: Incomplete. Need additional imaging evaluation. A letter regarding these results will be sent to the patient by the facility within 30 days. FOLLOW UP RECOMMENDATION: Ultrasound Recommended. (I) Approximately 10% of breast cancers are not detected by mammography. A normal mammogram should not delay biopsy of a clinically suspicious abnormality. Electronically Signed: Martin Montano MD at 10:06 [facility] ,
== END | disposition home or self-care (01) ==
LOC: OPBI 09:22
PROVIDERS: PCP Family Medicine; Referring Provider Nurse Practitioner Women's Health; Visit Provider Nurse Practitioner Women's Health
DX: N63.10 Unspecified lump in the right breast, unspecified quadrant (principal); R92.8 Other abnormal and inconclusive findings on diagnostic imaging of breast
CPT/HCPCS: 76642; 77062; 77066; G0279

== ENCOUNTER → 2024-01-29 | Outpatient (CLI) | payer BC, OTHER, SELFPAY ==
[2024-01-29 16:35] LABS: Vitamin D,25 Hydroxy 21.9 ng/mL
[2024-01-29 16:43] LABS: CRP 9.65 mg/L (0.0-3.0)
[2024-01-29 17:16] LABS: CRP, High Sensitivity Cardiac 9.87 mg/L
[2024-02-01 00:06] LABS: Adrenocorticotropic Hormone 8.4 pg/mL (7.2-63.3); Protein S, Free 82 % (61-136); Protein S, Total 74 % (60-150)
[2024-02-04 19:07] LABS: HPV APTIMA, High Risk Negative (Negative)
== END | disposition home or self-care (01) ==
PROVIDERS: Nurse Practitioner Women's Health; PCP Family Medicine; Referring Provider Family Medicine; Visit Provider Family Medicine
DX: H35.81 Retinal edema (principal); E55.9 Vitamin D deficiency, unspecified; G43.909 Migraine, unspecified, not intractable, without status migrainosus; R53.83 Other fatigue; D68.59 Other primary thrombophilia
CPT/HCPCS: 36415; 82024; 82306; 85305; 85306; 86140; 86141; 87624; 88175; G0145

== ENCOUNTER → 2024-02-20 | Outpatient (CLI) | payer BC, OTHER, SELFPAY ==
--- NOTE | 2024-02-20 15:54 | US_ITS ---
INDICATION: Bleeding EXAMINATION: Ultrasound US Pelvis Non-OB Complete TECHNIQUE: Transabdominal and endovaginal pelvic ultrasound was performed. Grayscale, spectral waveform, and color flow Doppler evaluation of the adnexa. COMPARISON: FINDINGS: UTERUS: Anteverted. The uterus measures 8.6 x 6.5 x 4.6 cm. There is no uterine mass. The endometrial stripe measures 9 mm in AP diameter with hyperechogenicity. Echogenic endometrial lesion measuring 9 mm is suspected. RIGHT OVARY: 2.1 x 1.7 x 1.1 cm. There is normal arterial inflow and venous outflow present in the right ovary. LEFT OVARY: 3.8 x 3.4 x 2.8 cm. There is a complex 3.0 x 2.7 x 1.7 cm cystic lesion There is normal arterial inflow and venous outflow present in the left ovary. FREE FLUID: None. US/Pelvic (Non ) IMPRESSION: Possible echogenic endometrial nodule. Complex left ovarian cystic lesion. Electronically Signed: Joshua Terry DO at 18:47 EDT Reading Location ID and State: [facility] / [place] Tel [phone], Service support ,
== END | disposition home or self-care (01) ==
LOC: US 15:52
PROVIDERS: PCP Family Medicine; Referring Provider Nurse Practitioner Women's Health; Visit Provider Nurse Practitioner Women's Health
DX: N92.0 Excessive and frequent menstruation with regular cycle (principal)
CPT/HCPCS: 76856

== ENCOUNTER 2024-02-22 06:29 | Emergency (ER) | payer BC, OTHER, SELFPAY ==
[2024-02-22 06:30] VITALS: BP 147/85; PULSE 105; RESP 16; TEMP 36.1; O2SAT 100; BMI 27.2
--- NOTE | 2024-02-22 06:51 | CT_ITS ---
STUDY: CT CERVICAL SPINE WITHOUT CONTRAST REASON FOR EXAM: Female, 38 years old. CERVICAL RADICULOPATHY RADIATION DOSAGE (If Supplied By Facility): CTDIvol = ( 14.51 ) mGy, DLP = ( 307.16 ) mGycm TECHNIQUE: High resolution transaxial imaging was performed without contrast material. Sagittal and coronal images were reconstructed. Individualized dose optimization techniques were used for this CT. COMPARISON: None FINDINGS: Normal craniovertebral junction. Normal anterior atlantoaxial articulation. Normal odontoid process. Normal cervical lordosis. Normal vertebral bodies and posterior osseous elements. C2-3: Normal endplates. Normal disc height and morphology. Normal central canal and intervertebral neuroforamina. C3-4: Normal endplates. Normal disc height and morphology. Normal central canal and intervertebral neuroforamina. C4-5: Normal endplates. Normal disc height and morphology. Normal central canal and intervertebral neuroforamina. C5-6: Mild spurring to the left. Normal central canal and intervertebral neuroforamina. C6-7: Disc space narrowing. Mild spurring. Normal central canal and intervertebral neuroforamina. C7-T1: Normal endplates. Normal disc height and morphology. Normal central canal and intervertebral neuroforamina. Normal visualized soft tissue structures. CT/Spine Cervical without Contras IMPRESSION: Mild degenerative change. No fracture seen. Electronically Signed: Too Galo MD at 8:18 EDT ,
[2024-02-22] MEDS: Orphenadrine 60 MG/2 ML Ampul IM (06:59)
[2024-02-22] MEDS: Ketorolac 30 MG/ML Syringe IM (07:00)
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
[2024-02-22 07:19] LABS: Bacteria 0 SEEN /hpf (None Seen); Mucous, Urine 0 SEEN /hpf (<or=2+); Red Blood Cells-Urine 0 SEEN /hpf (0-5); White Blood Cells 0 SEEN /hpf (0-5)
--- NOTE | 2024-02-22 07:22 | RAD_ITS ---
STUDY: X-RAY - UNILATERAL RIBS ( LEFT ) WITH CHEST REASON FOR EXAM: Female, 38 years old. PAIN TECHNIQUE - RIBS: 4 view(s) of the ribs. TECHNIQUE - CHEST: Single frontal view of the chest. COMPARISON: None. FINDINGS - RIBS: There is angulation with nondisplaced fracture of the left sixth rib. FINDINGS - CHEST: The lungs are clear and expanded. There is no demonstrated pleural abnormality. Normal size heart. Normal mediastinum and hemanth. Normal visualized pulmonary arteries. Normal visualized aortic arch and descending thoracic aorta. Normal visualized thoracic spine. There is angulation with nondisplaced fracture of the left sixth rib. There is no demonstrated abnormality of the visualized soft tissue structures of the upper abdomen. RAD/Ribs Uni Min 3V w/PA Chest IMPRESSION: RIBS: Left sixth rib fracture. No pneumothorax. CHEST: Left sixth rib fracture. No pneumothorax. Electronically Signed: Too Galo MD at 8:14 EDT ,
[2024-02-22 07:25] LABS: Color, Urine Yellow (Yellow); Glucose, Dipstick Normal (Normal); Ketone-Dipstick Negative (Negative); Leukocyte Esterase-Dipstick Negative /ul (Negative); Nitrite-Dipstick Negative (Negative); Occult Blood-Urine Negative /ul (Negative); Protein-Dipstick Negative (Negative); Specific Gravity, Urine 1.015 (1.002-1.030); Urine Bilirubin Dipstick Negative (Negative); Urine Clarity Clear (Clear); Urine Urobilinogen Normal (Normal)
[2024-02-22 07:42] LABS: Internal QC Validated? YES +Cl - CLEAR BKGD; Pregnancy, Urine Negative Negative; Record Kit Lot#,Urine Preg 718088; Squamous Epithelial Cells - UA 0-5 SEEN /hpf (5-10)
[2024-02-22 08:30] VITALS: BP 132/75; PULSE 68; RESP 18; TEMP 36.5; O2SAT 98
[2024-02-22 10:24] VITALS: BP 130/75; PULSE 68; RESP 18; TEMP 36.4; O2SAT 98
== END 2024-02-22 10:35 | disposition home or self-care (01) ==
PROVIDERS: Emergency Provider Emergency Medicine; PCP Family Medicine; Visit Provider Emergency Medicine
DX: S39.012A Strain of muscle, fascia and tendon of lower back, initial encounter (principal); V89.2XXA Person injured in unspecified motor-vehicle accident, traffic, initial encounter; S22.32XA Fracture of one rib, left side, initial encounter for closed fracture
CPT/HCPCS: 71101; 72125; 81001; 81025; 96372; 99282

== ENCOUNTER → 2024-04-07 | Outpatient (CLI) | payer BC, OTHER, SELFPAY ==
--- NOTE | 2024-04-07 11:29 | US_ITS ---
STUDY: ULTRASOUND OF THE FEMALE PELVIS - COMPLETE REASON FOR EXAM: Female, 38 years old. Pain in pelvis LMP: March 21, 2024. TECHNIQUE: Transvaginal TECHNICAL QUALITY: Adequate. COMPARISON: Comparison is made with prior study dated February 20, 2024. FINDINGS: The uterus is anteverted and is in a midline position. The uterus measures 8.4 cm x 5.5 cm by 4.5 cm. Normal uterine cervix. The endometrium measures 9.3 mm in thickness, and is hyperechoic. There is a 6 mm x 7 mm x 4 mm endometrial polyp. There is no demonstrated myometrial mass. I.U.D. - The patient does not have an I.U.D. The right ovary is visualized. The right ovary measures 2.5 cm x 1.1 cm x 1 cm. There is no right ovarian cyst or ovarian mass. There is no visualized right adnexal mass or complex lesion. There is normal arterial and normal venous vascularity. The left ovary is visualized. The left ovary measures 3.4 cm x 2.9 cm x 2.7 cm. There is a 2.4 cm x 2.1 cm x 1.6 cm left ovarian cyst. There is no visualized left adnexal mass or complex lesion. There is normal arterial and normal venous vascularity. There is no fluid in the cul-de-sac. US/Transvaginal Non- IMPRESSION: Findings suggestive of a 6 mm x 7 mm x 4 mm endometrial polyp. 2.4 cm x 2.1 cm x 1.6 cm left ovarian cyst. Electronically Signed: Matthieu Marcos MD at 14:25 EDT ,
[2024-04-07 13:53] LABS: Thyroid Stim Hormone (TSH) 0.88 uIU/mL (0.358-3.74)
== END | disposition home or self-care (01) ==
PROVIDERS: PCP Family Medicine; Referring Provider Nurse Practitioner Women's Health; Visit Provider Nurse Practitioner Women's Health
DX: E04.2 Nontoxic multinodular goiter (principal); R10.2 Pelvic and perineal pain
CPT/HCPCS: 36415; 76830; 84443

== ENCOUNTER → 2024-12-29 | Outpatient (CLI) | payer BC, OTHER, SELFPAY ==
--- NOTE | 2024-12-29 11:00 | BI_ITS ---
EXAM: SCRN MAMM (CAD)W/ELFEGO BILAT DATE: 12/29/2024 CLINICAL HISTORY: F, Age 39 y/o , SCREENING MAMMOGRAM FOR BREAST CANCER No family history. BREAST CANCER RISK ASSESSMENT: Not assessed. TECHNIQUE: Bilateral screening digital breast tomosynthesis with 2D and 3D images. Computer aided detection. COMPARISON: Prior exam(s) dated December 03, 2023.. FINDINGS: TISSUE DENSITY: The breast tissue is almost entirely fatty. Bilateral Breast Mammographic Findings: No significant masses, calcifications or other abnormalities are identified. No suspicious masses, areas of developing architectural distortion, or suspicious calcifications. There has been no significant interval change. BI/SCRN MAMM (CAD)W/ELFEGO BILAT IMPRESSION: Right Breast: BIRADS 1 NEGATIVE. Left Breast: BIRADS 1 NEGATIVE. OVERALL FINAL ASSESSMENT: BIRADS 1 NEGATIVE RECOMMENDATION: Routine annual follow-up in 1 Year A letter with findings and recommendations will be mailed to the patient. Reading Location: [facility]
--- NOTE | 2024-12-29 11:30 | CT_ITS ---
PROCEDURE: ABDOMEN/PELVIS WITH CONTRAST 12/29/2024 REASON FOR EXAM: PERSISTENT ABDOMINAL PAIN, LEFT LOWER QUADRANT PAIN, LUQ PAIN TECHNIQUE: Abdomen and pelvis CT with intravenous contrast. Coronal and Sagittal reconstruction series were provided. PATIENT PREPARATION: Per protocol ORAL CONTRAST given CONTRAST: 91 cc Isovue 370 One or more dose reduction techniques were used (e.g., Automated exposure control, adjustment of the mA and/or kV according to patient size, use of iterative reconstruction technique. RADIATION DOSE SUMMARY: CTDlvol: 15.70 mGy DLP: 845.83 mGycm COMPARISON: None available FINDINGS: The visualized lung bases appear clear. Very small portion dome of the liver excluded from imaging. The liver otherwise appears within limits. The gallbladder, adrenal glands, kidneys, pancreas and spleen appear within limits. A few small incidentally noted splenules. Symmetric appearing nephrograms without hydronephrosis or perinephric stranding. Abdominal aorta appears within limits. No adenopathy. No bowel dilation or free air. Normal caliber appendix without secondary signs. Colonic diverticulosis without diverticulitis. Appearance of mild dilation of the left fallopian tube, suggestion of mild hydrosalpinx, with appearance of possible mild wall thickening and enhancement for example coronal 52 through 62 and axial 82 through 78. Inflammatory or infectious process not excluded, clinically correlate. No surrounding inflammatory changes. 1.6 cm cyst left ovary. The right ovary appears within limits. The uterus appears within limits. The bladder is mostly collapsed. No free fluid. No hernia. The visualized osseous structures appear within limits. CT/Abdomen/Pelvis WITH Contrast IMPRESSION: Appearance of mild dilation of the left fallopian tube, suggestion of mild hydr osalpinx, with appearance of possible mild wall thickening and enhancement for example coronal 52 through 62 and axial 82 throu gh 78. Inflammatory or infectious process not excluded, clinically correlate. No surrounding inflammatory changes. No free fluid. Very small portion dome of the liver excluded from imaging. Colonic diverticulosis without diverticulitis. Reading Location: [id number]
[2024-12-29 11:35] VITALS: BP 135/80; PULSE 97; RESP 16; O2SAT 100
[2024-12-29 11:40] VITALS: BP 155/59; PULSE 89; RESP 16; O2SAT 98
[2024-12-29 11:52] VITALS: BP 123/70; PULSE 98; RESP 16; O2SAT 97
== END | disposition home or self-care (01) ==
PROVIDERS: PCP Family Medicine; Referring Provider Family Medicine; Visit Provider Family Medicine
DX: Z12.31 Encounter for screening mammogram for malignant neoplasm of breast (principal); R10.32 Left lower quadrant pain; R10.12 Left upper quadrant pain; K60.2 Anal fissure, unspecified; J01.90 Acute sinusitis, unspecified; K21.00 Gastro-esophageal reflux disease with esophagitis, without bleeding
CPT/HCPCS: 74177; 77063; 77067; Q9967

== ENCOUNTER → 2025-03-25 | Outpatient (CLI) | payer BC, OTHER, SELFPAY | END | disposition home or self-care (01) | LOC: MTLAB 13:05 | PROVIDERS: PCP Family Medicine; Referring Provider Internal Medicine Endocrinology, Diabetes & Metabolism; Visit Provider Internal Medicine Endocrinology, Diabetes & Metabolism | DX: E04.2 Nontoxic multinodular goiter (principal) | CPT/HCPCS: 36415; 84443 ==

== ENCOUNTER → 2025-07-27 | Outpatient (CLI) | payer BC, OTHER, SELFPAY ==
--- NOTE | 2025-07-27 12:25 | US_ITS ---
PROCEDURE: US/Pelvic w/ Transvaginal
== END | disposition home or self-care (01) ==
LOC: OPUS 12:24
PROVIDERS: PCP Family Medicine; Referring Provider Nurse Practitioner Women's Health; Visit Provider Nurse Practitioner Women's Health
DX: N92.0 Excessive and frequent menstruation with regular cycle (principal); R10.20 Pelvic and perineal pain unspecified side; Z87.42 Personal history of other diseases of the female genital tract
CPT/HCPCS: 76830; 76856

== ENCOUNTER → 2025-09-08 | Outpatient (CLI) | payer BC, OTHER, SELFPAY | END | disposition home or self-care (01) | LOC: LAB.FUTURE 09:44 | PROVIDERS: PCP Family Medicine; Referring Provider Family Medicine; Visit Provider Family Medicine | DX: M25.562 Pain in left knee (principal) ==